=== PATIENT | female | born 1950 | race Caucasian/White ===

== ENCOUNTER → 2017-12-02 | Outpatient (CLI) | payer MEDICARE ==
[2017-12-02 09:59] LABS: BILIRUBIN, URINE NEG (NEG); BLOOD, URINE NEG (NEG); GLUCOSE,URINE NEG (NEG); HYALINE CAST, URINE 1 /lpf (RARE); KETONE, URINE NEG (NEG); NITRITE,URINE NEG (NEG); SQUAMOUS EPITHELIAL CELL URINE 3 /hpf (0-5); TRANSITIONAL EPI CELLS, URINE <1 /hpf; URINE COLOR YELLOW (YELLW/STRAW); URINE LEUKOCYTE ESTERASE NEG (NEG)
[2017-12-02 10:07] LABS: COMMENT (UR) CATH-CULT NOT IND; CULTURE IF INDICATED CATH CULTURE NOT IND
== END ==
LOC: CPRE 08:00
DX: Z01.810 Encounter for preprocedural cardiovascular examination (principal); Z01.812 Encounter for preprocedural laboratory examination; R94.31 Abnormal electrocardiogram [ECG] [EKG]
CPT/HCPCS: 81001; 93005

== ENCOUNTER 2017-12-10 05:50 | Inpatient (IN) | payer MEDICARE ==
[2017-12-10] MEDS: CHLORHEXIDINE GLUCONATE 2 % 1 PACK (2 CLOTHS) TOPICAL (06:00)
[2017-12-10] MEDS: CHLORHEXIDINE GLUCONATE 4% SOLN 120 ML BTL TOPICAL (06:30)
[2017-12-10] MEDS ORDERED: SODIUM CHLORID 0.9% 500 ML IV (06:30)
[2017-12-10] MEDS: DEXAMETHASONE SOD PHOS 20 MG/5 ML VIAL (06:47)
[2017-12-10] MEDS: LACTATED RINGER'S 1000 ML IV (06:50)
[2017-12-10] MEDS: POVIDONE IODINE 5% (ANTISEPSIS KIT) 4 APPLICATIONS EACH NARE (06:55)
[2017-12-10] MEDS: DEXAMETHASONE SOD PHOS 20 MG/5 ML VIAL IV (07:01)
[2017-12-10] MEDS: METOPROLOL TARTRATE 25 MG TAB PO (07:01)
[2017-12-10] MEDS: VANCOMYCIN 1000 MG/NS 250 ML (for <70 kg) IV (07:28)
[2017-12-10] MEDS ORDERED: ACETAMINOPHEN 1000 MG/100 ML 100 ML IV (07:46)
[2017-12-10] MEDS ORDERED: BUPIVACAINE HCL PF 0.25% 30 ML VIAL (07:52)
[2017-12-10] MEDS ORDERED: ROPIVACAINE 0.5% PF INJ 30 ML VIAL ×2 (07:53)
[2017-12-10] MEDS ORDERED: EXPAREL PERI-ARTICULAR INJECTION (TOTAL VOL. 120 ML) P-ARTICULR (08:00)
[2017-12-10] MEDS ORDERED: TEMAZEPAM 15 MG CAP PO (08:15)
[2017-12-10] MEDS ORDERED: oxyCODONE/ACETAMINOPHEN 5 MG/325 MG TAB PO (08:15)
[2017-12-10] MEDS ORDERED: Post-op Orders (for Pharmacy) XX (08:15)
[2017-12-10] MEDS ORDERED: MORPHINE SULFATE 4 MG/ML INJ IV PUSH (08:15)
[2017-12-10] MEDS ORDERED: TRANEXAMIC ACID INJ 0 MG in SODIUM CHLORIDE 0.9% INJ 100 ML IV (08:15)
[2017-12-10] MEDS ORDERED: NALOXONE HCL 0.4 MG/ML AMP IV PUSH (08:15)
[2017-12-10] MEDS ORDERED: ONDANSETRON HCL 4 MG/2 ML VIAL IVP (08:15)
[2017-12-10] MEDS ORDERED: diphenhydrAMINE HCL 50 MG/ML VIAL IV PUSH (08:15)
[2017-12-10] MEDS ORDERED: ACETAMINOPHEN 325 MG TAB PO (08:15)
[2017-12-10] MEDS: ceFAZolin 2 GM PREMIX 50 ML IV (08:17)
[2017-12-10] MEDS: SODIUM CHLORIDE 0.9% IV ×2 (08:30→12:21)
[2017-12-10] MEDS: TRANEXAMIC ACID IV ×2 (08:30→12:21)
[2017-12-10] MEDS: POLYETHYLENE GLYCOL 17 GM PKG PO (09:00)
[2017-12-10] MEDS: LISINOPRIL 10 MG TAB PO (09:00)
[2017-12-10] MEDS: ceFAZolin INJ 1,000 MG VIAL (09:09)
[2017-12-10] MEDS: PANTOPRAZOLE SOD 20 MG DELAYED RELEASE TAB PO (10:00)
[2017-12-10] MEDS ORDERED: SODIUM CHLORIDE 0.9% IV (11:00)
[2017-12-10] MEDS ORDERED: TRANEXAMIC ACID IV (11:00)
[2017-12-10] MEDS ORDERED: DO NOT ADM ANY ANTICOAGULANT DRUGS (11:15)
[2017-12-10] MEDS: LACTATED RINGER'S 1000 ML INJ 1,000 ML IV ×3 (11:30→21:31)
[2017-12-10] MEDS ORDERED: MIDAZOLAM HCL 2 MG/2 ML VIAL (11:42)
[2017-12-10] MEDS: PHENYLEPHRINE HCL 10 MG/ML VIAL IV (12:00)
[2017-12-10] MEDS: PROPOFOL 200 MG/20 ML AMP IV (12:00)
[2017-12-10] MEDS: PHENYLEPH/NS 1000 MCG/10 ML SYR IV (12:00)
[2017-12-10] MEDS: ONDANSETRON HCL 4 MG/2 ML VIAL IV (12:00)
[2017-12-10] MEDS: DULoxetine HCl DR 60 MG CAP PO (13:30)
[2017-12-10] MEDS: FLUTICASONE PROPIONATE 50 MCG/ACT 16 GM NASAL SPRAY NASAL ×2 (13:30→20:43)
[2017-12-10] MEDS: POTASSIUM CHLORIDE 10 MEQ CONTROLLED RELEASE TAB PO (13:30)
[2017-12-10] MEDS: HYDROCHLOROTHIAZIDE 25 MG TAB PO (13:30)
[2017-12-10] MEDS: oxyCODONE/ACETAMINOPHEN 5 MG/325 MG TAB PO ×2 (16:25→20:43)
[2017-12-10] MEDS: GABAPENTIN 300 MG CAP PO (20:42)
[2017-12-10] MEDS: metFORMIN HCL 500 MG TAB PO (20:42)
[2017-12-10] MEDS: MONTELUKAST SODIUM 10 MG TAB PO (20:42)
[2017-12-10] MEDS: ATORVASTATIN 40 MG TAB PO (20:42)
[2017-12-11] MEDS: oxyCODONE/ACETAMINOPHEN 5 MG/325 MG TAB PO ×5 (01:22→20:43)
[2017-12-11] MEDS: GABAPENTIN 300 MG CAP PO ×2 (06:07→20:41)
[2017-12-11 07:02] LABS: HEMATOCRIT 25.7 % (35.0-46.0); REVIEW FLAG FINAL
[2017-12-11] MEDS: FLUTICASONE PROPIONATE 50 MCG/ACT 16 GM NASAL SPRAY NASAL ×2 (09:00→20:42)
[2017-12-11] MEDS: LACTATED RINGER'S 1000 ML INJ 1,000 ML IV ×2 (09:16→22:38)
[2017-12-11] MEDS: PANTOPRAZOLE SOD 20 MG DELAYED RELEASE TAB PO (09:16)
[2017-12-11] MEDS: POLYETHYLENE GLYCOL 17 GM PKG PO (09:16)
[2017-12-11] MEDS: HYDROCHLOROTHIAZIDE 25 MG TAB PO (09:16)
[2017-12-11] MEDS: LISINOPRIL 10 MG TAB PO (09:16)
[2017-12-11] MEDS: DULoxetine HCl DR 60 MG CAP PO (09:16)
[2017-12-11] MEDS: POTASSIUM CHLORIDE 10 MEQ CONTROLLED RELEASE TAB PO (09:16)
[2017-12-11] MEDS: APIXABAN 2.5 MG TABLET PO ×2 (10:59→20:42)
[2017-12-11] MEDS: metFORMIN HCL 500 MG TAB PO (20:41)
[2017-12-11] MEDS: MULTIVITAMINS/MINERALS THERAPEUTIC TAB PO (20:41)
[2017-12-11] MEDS: DOCUSATE SODIUM 100 MG CAP PO (20:41)
[2017-12-11] MEDS: MONTELUKAST SODIUM 10 MG TAB PO (20:41)
[2017-12-11] MEDS: ATORVASTATIN 40 MG TAB PO (20:42)
[2017-12-12] MEDS: oxyCODONE/ACETAMINOPHEN 5 MG/325 MG TAB PO ×3 (00:50→09:25)
[2017-12-12] MEDS: GABAPENTIN 300 MG CAP PO (05:01)
[2017-12-12 05:23] LABS: HEMATOCRIT 23.8 % (35.0-46.0); REVIEW FLAG FINAL
[2017-12-12 05:23] LABS: HEMOGLOBIN 8.5 GM/DL (11.6-15.3)
[2017-12-12] MEDS: FLUTICASONE PROPIONATE 50 MCG/ACT 16 GM NASAL SPRAY NASAL (09:00)
[2017-12-12] MEDS: POTASSIUM CHLORIDE 10 MEQ CONTROLLED RELEASE TAB PO (09:24)
[2017-12-12] MEDS: MULTIVITAMINS/MINERALS THERAPEUTIC TAB PO (09:24)
[2017-12-12] MEDS: PANTOPRAZOLE SOD 20 MG DELAYED RELEASE TAB PO (09:24)
[2017-12-12] MEDS: APIXABAN 2.5 MG TABLET PO (09:24)
[2017-12-12] MEDS: DULoxetine HCl DR 60 MG CAP PO (09:24)
[2017-12-12] MEDS: DOCUSATE SODIUM 100 MG CAP PO (09:24)
[2017-12-12] MEDS: POLYETHYLENE GLYCOL 17 GM PKG PO (09:25)
[2017-12-12] MEDS ORDERED: BACITRACIN OINT 0.9 GM PKT TOP (10:15)
== END 2017-12-12 12:51 | disposition home health service (06) | DRG 470 ==
LOC: HSDI 05:50 → N06A 15:38
PROVIDERS: Surgery
PROC: 0SRD0J9 Replacement of Left Knee Joint with Synthetic Substitute, Cemented, Open Approach (ICD-10-PCS; principal; 2017-12-10 08:04)
PROC: 3E0T3BZ Introduction of Anesthetic Agent into Peripheral Nerves and Plexi, Percutaneous Approach (ICD-10-PCS; 2017-12-10 08:04)
DX: M17.12 Unilateral primary osteoarthritis, left knee (principal); I10 Essential (primary) hypertension; E11.9 Type 2 diabetes mellitus without complications; E78.5 Hyperlipidemia, unspecified; F32.9 Major depressive disorder, single episode, unspecified; J45.909 Unspecified asthma, uncomplicated; K21.9 Gastro-esophageal reflux disease without esophagitis; G47.33 Obstructive sleep apnea (adult) (pediatric); E66.9 Obesity, unspecified; Z79.84 Long term (current) use of oral hypoglycemic drugs; Z85.828 Personal history of other malignant neoplasm of skin
CPT/HCPCS: 73560; 85014; 85018; 86850; 86900; 86901; 94150; 97110-GP; 97116-GP; 97150-GP; 97163-GP; 97166-GO; 97535-GO